=== PATIENT | male | born 1990 | race African-American/Black ===

== ENCOUNTER 2016-10-21 22:59 | Emergency (ER) | payer OTHER ==
[~2016-10-21] VITALS: Ht 167.6 cm; Wt 70.3 kg
[2016-10-21 23:03] VITALS: BP 108/68
[2016-10-21] MEDS ORDERED: MOBIC15 MG PO (23:20)
== END 2016-10-21 23:26 | disposition home or self-care (01) ==
LOC: ER 22:59
DX: M79.641 Pain in right hand (principal); M79.642 Pain in left hand; X50.0XXA Overexertion from strenuous movement or load, initial encounter; Y93.89 Activity, other specified; Y92.89 Other specified places as the place of occurrence of the external cause; Y99.9 Unspecified external cause status

== ENCOUNTER 2016-10-23 14:58 | Emergency (ER) | payer OTHER ==
[~2016-10-23] VITALS: Ht 167.6 cm; Wt 68.0 kg
[~2016-10-23 14:58] MED LIST: MOBIC15 MG PO
[2016-10-23 15:13] VITALS: BP 112/74
[2016-10-23] MEDS ORDERED: NORFLEX100 MG PO (16:17)
== END 2016-10-23 16:37 | disposition home or self-care (01) ==
LOC: ER 14:58
DX: S16.1XXA Strain of muscle, fascia and tendon at neck level, initial encounter (principal); J02.9 Acute pharyngitis, unspecified; X58.XXXA Exposure to other specified factors, initial encounter; Y93.89 Activity, other specified; Y92.89 Other specified places as the place of occurrence of the external cause; Y99.9 Unspecified external cause status

== ENCOUNTER 2017-03-15 23:53 | Emergency (ER) | payer OTHER ==
[~2017-03-15] VITALS: Ht 167.6 cm; Wt 74.4 kg
[~2017-03-15 23:53] MED LIST changes: +NAPROSYN500 MG PO; +NORFLEX100 MG PO; +ULTRAM 50MG TAB50 MG PO
[2017-03-16] MEDS ORDERED: ULTRAM 50MG TAB50 MG PO (01:00)
[2017-03-16] MEDS ORDERED: NAPROSYN500 MG PO (01:00)
[2017-03-16 03:56] VITALS: BP 132/76
== END 2017-03-16 03:56 | disposition home or self-care (01) ==
LOC: ER 23:53
DX: M16.12 Unilateral primary osteoarthritis, left hip (principal)